=== PATIENT | male | born 1945 | race Caucasian/White ===

== ENCOUNTER 2024-08-19 20:19 | Emergency (ER) | payer MEDICARE ==
[~2024-08-19] VITALS: Ht 185.4 cm; Wt 139.0 kg
[2024-08-19 21:30] VITALS: BP 114/71
== END 2024-08-19 21:30 | disposition home or self-care (01) ==
LOC: ED 20:19
DX: S91.114A Laceration without foreign body of right lesser toe(s) without damage to nail, initial encounter (principal); I10 Essential (primary) hypertension; E11.9 Type 2 diabetes mellitus without complications; I48.91 Unspecified atrial fibrillation; I25.10 Atherosclerotic heart disease of native coronary artery without angina pectoris; J44.9 Chronic obstructive pulmonary disease, unspecified; W45.8XXA Other foreign body or object entering through skin, initial encounter; Y93.E8 Activity, other personal hygiene; Y92.009 Unspecified place in unspecified non-institutional (private) residence as the place of occurrence of the external cause; Z79.01 Long term (current) use of anticoagulants